=== PATIENT | female | born 1990 | race Hispanic/Latino ===

== ENCOUNTER → 2023-10-16 | Emergency (ER) | payer SELFPAY ==
[2023-10-16 15:03] LABS: SARS-CoV-2 Antigen Rapid Res Negative (Negative)
--- NOTE | 2023-10-16 15:50 | ER ---
Nurse's Notes [facility] Name: Jenniffer Bey Age: 32 yrs Sex: Female : 1990 Arrival Date: 10/16/2023 Time: 13:57 Bed IW2 Private MD: Diagnosis: Fever, unspecified;Acute upper respiratory infection, unspecified Presentation: 10/16 14:27 Onset of symptoms was October 16, 2023. aa5 14:27 Acuity: APOLINAR 4 aa5 14:27 Coronavirus screen: congestion, cough unrelated to allergies. Ebola Screen: Patient aa5 denies travel to an Ebola-affected area in the 21 days before illness onset. Initial Sepsis Screen: Does the patient meet any 2 criteria? No. Patient's initial sepsis screen is negative. Does the patient have a suspected source of infection? No. Patient's initial sepsis screen is negative. Risk Assessment: Do you want to hurt yourself or someone else? Patient reports no desire to harm self or others. 14:27 Method Of Arrival: Ambulatory aa 14:27 Chief complaint: Patient states: congestion, runny nose, and slight cough. 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 - Social history:: Smoking status: Patient denies any tobacco usage or history of. - Family history:: not pertinent. - Hospitalizations: : No recent hospitalization is reported. Assessment: 16:03 Reassessment: Patient is alert, oriented x 3, equal unlabored respirations, skin aa5 warm/dry/pink. Vital Signs: 14:27 BP 112 / 62; Pulse 69; Resp 19 S; Temp 97.5(TE); Pulse Ox 99% on R/A; Weight 117.93 kg aa5 (R); Height 5 ft. 7 in. (R); 14:27 Body Mass Index 40.72 (117.93 kg, 170.18 cm) aa5 ED Course: 14:12 Patient arrived in ED. im 14:23 Jose Soria MD is Attending Physician. rn 14:27 Arm band placed on. aa5 14:33 Triage completed. aa5 16:03 No provider procedures requiring assistance completed. Patient did not have IV access aa5 during this emergency room visit. Administered Medications: No medications were administered Outcome: 15:50 Discharge ordered by . rn 16:03 Discharged to home ambulatory, aa5 16:03 Condition: good 16:03 Discharge instructions given to patient, Instructed on discharge instructions, follow up and referral plans. Demonstrated understanding of instructions, follow-up care, 16:05 Patient left the ED. aa5 Signatures: Jose Soria MD MD rn Calderon, Audri, RN RN aa5 Chantell Jo
--- NOTE | 2023-10-16 15:50 | EDPHYS ---
Physician Documentation [facility] Name: Jenniffer Bey Age: 32 yrs Sex: Female : 1990 Arrival Date: 10/16/2023 Time: 13:57 Bed IW2 Private MD: ED Physician Jose Soria HPI: 10/16 14:42 This 32 yrs old Female presents to ER via Ambulatory with complaints of Flu Symptoms. rn 14:42 The patient or guardian reports cough, flu symptoms, low-grade fever, myalgias, no rn appetite. Onset: The symptoms/episode began/occurred yesterday. Severity of symptoms: At their worst the symptoms were mild, in the emergency department the symptoms are unchanged. Modifying factors: The symptoms are alleviated by nothing, the symptoms are aggravated by nothing. Associated signs and symptoms: Pertinent positives: fever, rhinorrhea, sore throat, Pertinent negatives: chest pain, vomiting. The patient has not experienced similar symptoms in the past. Mother reports upper respiratory infection, cough, sinus pressure, sore throat and runny nose. Reports subjective fever and malaise. Son with identical symptoms at this time and a another one of her children was sick this past week as well.. 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 - Social history:: Smoking status: Patient denies any tobacco usage or history of. - Family history:: not pertinent. - Hospitalizations: : No recent hospitalization is reported. ROS: 14:42 Constitutional: Negative for fever, chills, and weight loss, ENT: Positive for sinus rn pressure, congestion, sore throat Neck: Negative for injury, pain, and swelling, Cardiovascular: Negative for chest pain, palpitations, and edema, Respiratory: Negative for wheezing, and pleuritic chest pain, positive for cough Abdomen/GI: Negative for abdominal pain, nausea, vomiting, diarrhea, and constipation, MS/Extremity: Negative for injury and deformity, Skin: Negative for injury, rash, and discoloration, Neuro: Negative for numbness, tingling, and seizure Exam: 14:42 Constitutional: This is a well developed, well nourished patient who is awake, alert, rn and in no acute distress. Head/Face: Normocephalic, atraumatic. ENT: Mild pharyngeal erythema, no exudate, no stridor Cardiovascular: Regular rate and rhythm. No pulse deficits. Respiratory: No increased work of breathing, no retractions or nasal flaring. Neuro: Awake and alert, GCS 15 Vital Signs: 14:27 BP 112 / 62; Pulse 69; Resp 19 S; Temp 97.5(TE); Pulse Ox 99% on R/A; Weight 117.93 kg aa5 (R); Height 5 ft. 7 in. (R); 14:27 Body Mass Index 40.72 (117.93 kg, 170.18 cm) aa5 MDM: 14:23 Patient medically screened. rn 15:49 Differential Diagnosis: Bronchitis Influenza Upper Respiratory Infection Sinusitis rn Pharyngitis Viral Syndrome. Data reviewed: vital signs, nurses notes, lab test result(s), and as a result, I will discharge patient. Counseling: I had a detailed discussion with the patient and/or guardian regarding the historical points, exam findings, and any diagnostic results supporting the discharge/admit diagnosis, lab results, the need for outpatient follow up, to return to the emergency department if symptoms worsen or persist or if there are any questions or concerns that arise at home. Special discussion: I discussed with the patient/guardian in detail that at this point there is no indication for admission to the hospital. It is understood, however, that if the symptoms persist or worsen the patient needs to return immediately for re-evaluation. ED course: Most likely viral illness given multiple family members sick at the same time. COVID/flu/strep negative. Will discharge home with [id number] medication and return precautions.. 10/16 14:35 Order name: Flu; Complete Time: 15:39 rn 10/16 14:35 Order name: SARS RAPID; Complete Time: 15:39 rn 10/16 14:35 Order name: Strep; Complete Time: 15:39 rn 10/16 15:14 Order name: Throat Culture EDMS Administered Medications: No medications were administered Disposition Summary: 10/16/23 15:50 Discharge Ordered Notes: Location: Home rn Problem: new rn Symptoms: have improved rn Condition: Stable rn Diagnosis - Fever, unspecified rn - Acute upper respiratory infection, unspecified rn Followup: rn - With: Private Physician - When: As needed - Reason: Recheck today's complaints, Re-evaluation by your physician Discharge Instructions: - Discharge Summary Sheet rn - Upper Respiratory Infection, Adult rn - Viral Respiratory Infection rn Forms: - Medication Reconciliation Form rn - Thank You Letter rn - 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
[2023-10-16 16:32] VITALS: BP 112/62; TEMP 97.5; O2SAT 99
== END ==
LOC: ER 13:57
DX: J06.9 Acute upper respiratory infection, unspecified (principal); Z11.52 Encounter for screening for COVID-19
CPT/HCPCS: 36415; 87070; 87081; 87804; 87811; 99282